=== PATIENT | male | born 1960 | race Caucasian/White ===

== ENCOUNTER 2022-10-29 16:39 | Observation (INO) | payer BC, SELFPAY ==
[2022-10-29] VITALS (8 sets, daily range): BP systolic 114–121; BP diastolic 56–64; PULSE 73–83; RESP 18–20; TEMP 36.6–36.9; O2SAT 97–100; BMI 27.5
--- NOTE | 2022-10-29 18:50 | DI.US.S_ITS ---
PROCEDURE: US ABDOMEN LIMITED INDICATIONS: RUQ/RLQ PAIN TECHNIQUE: Real-time focused scanning was performed of the abdomen, with image documentation. COMPARISON: [facility], CT, CT ABDOMEN PELVIS W CON, 10/29/2022, 20:15. FINDINGS: The liver is mildly enlarged but demonstrates no focal mass lesions. The gallbladder demonstrates no stones, wall thickening, or pericholecystic fluid. No intra or extrahepatic biliary ductal dilatation. Pancreas was not well visualized. Evaluation of the right lower quadrant demonstrates a tubular structure which appears blind ending and measures up to 1.5 cm in diameter with wall thickening measuring up to 0.4 cm. This was reportedly noncompressible. There is increased vascularity within the wall on color Doppler interrogation. Adjacent echogenic fat is noted. No definite free fluid. IMPRESSION: 1. Blind-ending noncompressible tubular structure in the right lower quadrant suggestive of acute appendicitis. Findings discussed with Dr. Morocho on 10/29/2022 at 8:40 p.m.. Dictated by: Alfredo Nathan M.D. on 10/29/2022 at 20:33 Approved by: Alfredo Nathan M.D. on 10/29/2022 at 20:42
[2022-10-29 19:17] LABS: Add Manual Diff / Slide Review NO; Basophils Absolute Auto 0 /uL (0-100); Basophils Percent Auto 0.3 % (0-2); Eosinophils Absolute Auto 0 /uL (0-450); Hematocrit 38.9 % (41-53); Hemoglobin 13.1 g/dL (13.5-17.5); Lymphocytes Absolute Auto 700 /uL (1100-4500); Lymphocytes Percent Auto 4.5 % (25-40); Mean Corpuscular HGB Conc 33.6 % (30-36); Mean Corpuscular Hemoglobin 29.7 PG (26-34); Mean Corpuscular Volume 88.4 fL (80-100); Monocytes Absolute Auto 900 /uL (0-900); Monocytes Percent Auto 6.4 % (3-14); Neutrophils Absolute Auto 13100 /uL (1500-7000); Neutrophils Percent Auto 88.8 % (50-75); Platelet Count 139 X10^3/uL (150-400); Red Cell Distribution Width 14.2 % (11.6-14.8); White Blood Cell Count 14.7 X10^3/uL (4.5-11.0)
--- NOTE | 2022-10-29 19:20 | ED_ITS ---
HPI - General Adult General Chief complaint: Abdominal Pain Stated complaint: ABD PAIN Time Seen by Provider: 10/29/22 19:01 Source: patient Mode of arrival: Ambulatory History of Present Illness HPI narrative: Patient is a 62-year-old male who is here for evaluation of approximately 12 hours of what was initially right upper quadrant and right-sided abdominal pain that has progressed now to more periumbilical and lower right lower quadrant pain. He denies any fevers. No prior abdominal surgeries. No urinary symptoms. He has urinated today but that has not changed his pain at all. He also feels like he has been somewhat constipated but did have a bowel movement today and that did not change his pain at all. No nausea or vomiting but he has had a decrease in appetite. No chest pain or shortness of breath. No testicular pain. Related Data Allergies Allergy/AdvReac Type Severity Reaction Status Date / Time No Known Drug Allergies Allergy Verified 10/29/22 17:22 Review of Systems Constitutional Constitutional: Reports system reviewed and no additional complaints, except as documented Cardiovascular Cardiovascular: Reports system reviewed and no additional complaints, except as documented Respiratory Respiratory: Reports system reviewed and no additional complaints, except as documented Gastrointestinal Gastrointestinal: Reports system reviewed and no additional complaints, except as documented Genitourinary Genitourinary: Reports system reviewed and no additional complaints, except as documented Integumentary/Breasts Skin/Breast: Reports system reviewed and no additional complaints, except as documented Patient History Social History Smoking Status: Never smoker Smoking Status: Never smoker alcohol intake frequency: 0-2 drinks per day Substance Use Type: does not use Exam Initial Vital Signs Initial Vital Signs: Vital Signs Temperature 98.4 F 10/29/22 17:14 Pulse Rate 83 10/29/22 17:14 Respiratory Rate 20 10/29/22 17:14 Blood Pressure 114/61 10/29/22 17:14 Pulse Oximetry 100 10/29/22 17:14 Oxygen Delivery Method Room Air 10/29/22 17:14 [facility] Head: normal to inspection and normocephalic GI Inspection: normal to inspection and non-distended Palpation: soft, No firm, No guarding and tender (Right lower quadrant and right upper quadrant) Back/Spine/Pelvis Back: No CVA tenderness Skin General: no rashes or lesions noted Neuro General: patient alert, patient awake and moves all extremities Course Orders Ordered: ED Orders 10/29/22 18:50 US abdomen limited Stat 10/29/22 19:10 Complete Blood Count AUTO DIFF Stat Comprehensive Metabolic Panel Stat Lipase Stat 10/29/22 19:12 EKG-12 Lead Stat 10/29/22 19:56 CT abdomen pelvis w con Stat Acetaminophen (Acetaminophen 325 Mg Tablet) 650 mg PO Q6H BAM Gabapentin (Gabapentin 300 Mg Capsule) 300 mg PO TID BAM Hydromorphone HCl (Hydromorphone 0.5 Mg Inj) 0.5 mg IV Q2H PRN PRN Reason: Pain, Severe (7-10) Lactated Ringer's (Lactated Ringers) 1,000 mls @ 100 mls/hr IV CONT BAM Piperacillin Sod/Tazobactam (Sod 3.375 gm/ Sodium Chloride) 100 mls @ 25 mls/hr IV Q8H BAM Ibuprofen (Ibuprofen 600 Mg Tablet) 600 mg PO Q6H BAM Naloxone HCl (Naloxone 0.4 Mg/Ml Vial) 0.2 mg IV Q2MIN PRN PRN Reason: Opiate Reversal Ondansetron HCl (Ondansetron 4 Mg Odt) 4 mg PO NOW PRN PRN Reason: Nausea And Vomiting Ondansetron HCl (Ondansetron 4 Mg/2 Ml Inj) 4 mg IV NOW PRN PRN Reason: Nausea And Vomiting Oxycodone HCl (Oxycodone Ir 5 Mg Tablet) 5 mg PO Q3H PRN PRN Reason: Pain, Moderate (4-6) Discontinued Medications Scopolamine (Scopolamine 1 Patch) 1 patch TOP NOW ONE Stop: 10/29/22 21:25 Vital Signs Vital signs: Vital Signs - 8 hr 10/29/22 17:14 10/29/22 19:03 10/29/22 19:03 Temperature 98.4 F Pulse Rate 83 81 Respiratory Rate 20 Blood Pressure 114/61 120/64 Pulse Oximetry 100 98 Oxygen Delivery Method Room Air Room Air 10/29/22 19:30 10/29/22 19:30 10/29/22 20:00 Temperature Pulse Rate 73 Respiratory Rate Blood Pressure 118/58 L 119/56 L Pulse Oximetry 100 Oxygen Delivery Method Room Air 10/29/22 20:00 10/29/22 20:30 10/29/22 20:30 Temperature Pulse Rate 75 77 Respiratory Rate Blood Pressure 115/57 L Pulse Oximetry 99 98 Oxygen Delivery Method Room Air Room Air 10/29/22 21:00 10/29/22 21:00 Temperature Pulse Rate 79 Respiratory Rate Blood Pressure 121/60 Pulse Oximetry 99 Oxygen Delivery Method Room Air Medical Decision Making Lab Data Lab results reviewed: Yes I reviewed the patient's lab results. 10/29/22 19:10 10/29/22 19:10 Labs: Lab Results 10/29/22 10/29/22 Range/Units 19:10 19:10 WBC 14.7 H (4.5-11.0) X10^3/uL RBC 4.40 L (4.5-5.9) X10^6/uL Hgb 13.1 L (13.5-17.5) g/dL Hct 38.9 L (41-53) % MCV 88.4 (80-100) fL MCH 29.7 (26-34) PG MCHC 33.6 (30-36) % RDW 14.2 (11.6-14.8) % Plt Count 139 L (150-400) X10^3/uL Neut % (Auto) 88.8 H (50-75) % Lymph % (Auto) 4.5 L (25-40) % Glenn % (Auto) 6.4 (3-14) % Eos % (Auto) 0.0 L (2-4) % Baso % (Auto) 0.3 (0-2) % Neut # (Auto) 92904 H (2845-7643) /uL Lymph # (Auto) 700 L (4388-2425) /uL Glenn # (Auto) 900 (0-900) /uL Eos # (Auto) 0 (0-450) /uL Baso # (Auto) 0 (0-100) /uL Sodium 135 L (137-145) mmol/L Potassium 4.3 (3.4-5.1) mmol/L Chloride 101 (98-107) mmol/L Carbon Dioxide 25 (22-32) mmol/L BUN 16 (9-20) mg/dL Creatinine 0.93 (0.66-1.25) mg/dL Estimated GFR > 60 (>60) mL/min BUN/Creatinine Ratio 17.2 (6-22) Glucose 111 H (80-110) mg/dL Calcium 8.9 (8.4-10.2) mg/dL Total Bilirubin 1.1 (0.2-1.3) mg/dL AST 39 (17-59) IU/L ALT 35 (<50) IU/L Alkaline Phosphatase 42 (38-126) U/L Total Protein 7.3 (6.3-8.2) g/dL Albumin 4.5 (3.5-5.0) g/dL Globulin 2.8 (1.7-4.1) g/dL Albumin/Globulin Ratio 1.6 (1.0-2.8) Lipase 33 (23-300) U/L Urine Dip Bedside Urine Glucose Negative Bedside Urine Bilirubin - Negative Bedside Urine Ketone + 15 Urine Specific [place] 1.010 Bedside Urine Occult Blood - Negative Bedside Urine pH 5.5 Bedside Urine Protein - Negative Bedside Urine Urobilinogen - Negative Bedside Urine Nitrite - Negative Bedside Urine Leukocytes - Negative Esterase Point of care testing: Urine Dip Bedside Urine Glucose Negative Bedside Urine Bilirubin - Negative Bedside Urine Ketone + 15 Urine Specific [place] 1.010 Bedside Urine Occult Blood - Negative Bedside Urine pH 5.5 Bedside Urine Protein - Negative Bedside Urine Urobilinogen - Negative Bedside Urine Nitrite - Negative Bedside Urine Leukocytes - Negative Esterase Imaging Data US - abdomen: Radiologist's Impression: PROCEDURE: US ABDOMEN LIMITED ? INDICATIONS:? RUQ/RLQ PAIN ? TECHNIQUE:? Real-time focused scanning was performed of the abdomen, with image documentation.? ? COMPARISON:? [facility], CT, CT ABDOMEN PELVIS W CON, 10/29/2022, 20:15. ? FINDINGS:? ? The liver is mildly enlarged but demonstrates no focal mass lesions.? ? The gallbladder demonstrates no stones, wall thickening, or pericholecystic fluid. ? No intra or extrahepatic biliary ductal dilatation. ? Pancreas was not well visualized. ? Evaluation of the right lower quadrant demonstrates a tubular structure which appears blind ending and measures up to 1.5 cm in diameter with wall thickening measuring up to 0.4 cm.? This was reportedly noncompressible.? There is increased vascularity within the wall on color Doppler interrogation.? Adjacent echogenic fat is noted.? No definite free fluid. ? ? IMPRESSION:? ? 1. Blind-ending noncompressible tubular structure in the right lower quadrant suggestive of acute appendicitis. ? Findings discussed with Dr. Morocho on 10/29/2022 at 8:[address] scan - abdomen/pelvis: Radiologist's Impression: PROCEDURE:? CT ABDOMEN PELVIS W CON ? INDICATIONS:? Right lower quadrant abdominal pain ? TECHNIQUE:? After the administration of IV contrast, axial sections were acquired from the lung bases to the pubic symphysis.? Coronal and sagittal reformats were performed.? For radiation dose reduction, the following was used:? automated exposure control, adjustment of mA and/or kV according to patient size. ? COMPARISON:? [facility], ABDOMEN LIMITED, 10/29/2022, 19:22. ? FINDINGS:? Image quality:? Excellent.? ? Lung bases:? There is mild dependent atelectasis.? ? Heart:? Heart is normal in size. ? ? ABDOMEN: Liver:? No mass lesion. Gallbladder:? Within normal limits without calcified gallstones.? ? Biliary ducts:? No biliary ductal dilatation.? ? Pancreas:? Unremarkable.? ? Spleen:? Normal in size.? ? Adrenal Glands:? No adrenal nodules.? ? Kidneys and Ureters:? No hydronephrosis.? ? ? Stomach and Bowel:? Stomach, small bowel loops, and colon are normal in caliber and wall thickness.? The appendix demonstrates abnormal wall thickening and enlargement, measuring up to 1.6 cm in diameter with periappendiceal fat stranding consistent with acute appendicitis.? No associated appendiculolith.? Peritoneum:? There is minimal free fluid in the right lower quadrant without a loculated abscess.? No free air.? ? Ventral Wall: ? No hernia.? Abdominal Nodes:? No retroperitoneal or mesenteric adenopathy by size criteria.? Vessels:? Aorta and inferior vena cava are normal in size.? ? PELVIS: Pelvic Organs:? Unremarkable.? ? Bladder:? Unremarkable.? ? Pelvic Nodes: No enlarged lymph nodes.? Miscellaneous: No inguinal hernias are seen. ? ? ? Bones:? Visualized osseous structures demonstrate no suspicious focal lesions. ? IMPRESSION:? ? 1. Acute appendicitis without evidence of appendiculolith or suspected perforation. ECG Data Attestation: I personally reviewed and interpreted this ECG as follows: Interpretation: Sinus rhythm Ventricular rate is 77 Normal axis Normal QRS Normal QTC No ST T wave changes MDM Narrative Medical decision making narrative: Patient has CT scan evidence of acute appendicitis. Has a leukocytosis. This does fit his clinical presentation. I discussed the CT scan findings with Dr. Darnell who had me discussed with the patient options to include oral antibiotics and discharged home with an interval appendectomy versus being admitted to the hospital this evening. After the discussion with the patient he opted to be admitted to the hospital for surgical treatment. Patient will be admitted to General surgery Service. Discharge Plan Departure Patient Disposition: Admitted As Inpatient Clinical Impression: Acute appendicitis Admit Date/Time: 10/29/22 21:08 Admit Provider: Maria Esther Darnell
[2022-10-29 19:29] LABS: Alanine Aminotransferase 35 IU/L (<50); Albumin 4.5 g/dL (3.5-5.0); Albumin Globulin Ratio 1.6 (1.0-2.8); Alkaline Phosphatase 42 U/L (38-126); Aspartate Aminotransferase 39 IU/L (17-59); BUN Creatinine Ratio 17.2 (6-22); Bilirubin Total 1.1 mg/dL (0.2-1.3); Blood Urea Nitrogen 16 mg/dL (9-20); Calcium 8.9 mg/dL (8.4-10.2); Carbon Dioxide 25 mmol/L (22-32); Chloride 101 mmol/L (98-107); Estimated Glomerular Filt Rate > 60 mL/min (>60); Globulin 2.8 g/dL (1.7-4.1); Glucose 111 mg/dL (80-110); HEMOLYSIS 17 (0-50); Lipase 33 U/L (23-300); Potassium 4.3 mmol/L (3.4-5.1); Sodium 135 mmol/L (137-145); Total Protein 7.3 g/dL (6.3-8.2)
--- NOTE | 2022-10-29 19:56 | DI.CT.S_ITS ---
PROCEDURE: CT ABDOMEN PELVIS W CON INDICATIONS: Right lower quadrant abdominal pain TECHNIQUE: After the administration of IV contrast, axial sections were acquired from the lung bases to the pubic symphysis. Coronal and sagittal reformats were performed. For radiation dose reduction, the following was used: automated exposure control, adjustment of mA and/or kV according to patient size. COMPARISON: [facility], , US ABDOMEN LIMITED, 10/29/2022, 19:22. FINDINGS: Image quality: Excellent. Lung bases: There is mild dependent atelectasis. Heart: Heart is normal in size. ABDOMEN: Liver: No mass lesion. Gallbladder: Within normal limits without calcified gallstones. Biliary ducts: No biliary ductal dilatation. Pancreas: Unremarkable. Spleen: Normal in size. Adrenal Glands: No adrenal nodules. Kidneys and Ureters: No hydronephrosis. Stomach and Bowel: Stomach, small bowel loops, and colon are normal in caliber and wall thickness. The appendix demonstrates abnormal wall thickening and enlargement, measuring up to 1.6 cm in diameter with periappendiceal fat stranding consistent with acute appendicitis. No associated appendiculolith. Peritoneum: There is minimal free fluid in the right lower quadrant without a loculated abscess. No free air. Ventral Wall: No hernia. Abdominal Nodes: No retroperitoneal or mesenteric adenopathy by size criteria. Vessels: Aorta and inferior vena cava are normal in size. PELVIS: Pelvic Organs: Unremarkable. Bladder: Unremarkable. Pelvic Nodes: No enlarged lymph nodes. Miscellaneous: No inguinal hernias are seen. Bones: Visualized osseous structures demonstrate no suspicious focal lesions. IMPRESSION: 1. Acute appendicitis without evidence of appendiculolith or suspected perforation. Findings discussed with Dr. Morocho on 10/29/2022 at 8:40 p.m.. Dictated by: Alfredo Nathan M.D. on 10/29/2022 at 20:44 Approved by: Alfredo Nathan M.D. on 10/29/2022 at 20:47
--- NOTE | 2022-10-29 21:31 | P.HP_ITS ---
History of Present Illness <Maria Esther Darnell MD - Last Filed: 10/29/22 21:33> History of Present Illness Chief complaint: ABD PAIN Narrative: Around 12 hours abdominal pain when presented to ED. Right sided and worsening. CT shows uncomplicated appendicitis w/o fecal lith. Patient for out of town and prefers surgery. <Kyle Gardner MD - Last Filed: 10/30/22 10:06> History of Present Illness Narrative: Mr. Chavis is a healthy 62-year-old man who presented to [facility] with abdominal pain last night. He had approximately 12 hours of generally right-sided abdominal pain prior to presentation. Initial workup demonstrates white blood cell count 15 remainder of his laboratory studies are largely unremarkable. CT abdomen pelvis demonstrates 1.6 cm dilated appendix with fat stranding no abscess or fecalith. He has been receiving IV fluids and Zosyn since admission. He feels improved since presentation. He is traveling from [place] and the option of antibiotic therapy versus surgery was discussed with him in the emergency department and his preference was for surgery. No prior abdominal surgery. He has had multiple orthopedic operations which he tolerated without bleeding or anesthetic complication. Past medical history is significant for an aneurysm of his coronary vessel for which he takes aspirin and Crestor. He is followed by Cardiology and has no chest pain at rest or with exertion. 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 Meds <Maria Esther Darnell MD - Last Filed: 10/29/22 21:33> Home Medications and Allergies Home Medications Medication Instructions Recorded Confirmed Type aspirin 81 mg chewable tablet 81 mg PO DAILY 10/29/22 10/29/22 History escitalopram oxalate 5 mg tablet 5 mg PO DAILY 10/29/22 10/29/22 History (Lexapro) rosuvastatin 5 mg tablet (Crestor) 3 mg PO DAILY 10/29/22 10/29/22 History Allergies Allergy/AdvReac Type Severity Reaction Status Date / Time No Known Drug Allergies Allergy Verified 10/29/22 17:22 Exam <Maria Esther Darnell MD - Last Filed: 10/29/22 21:33> Vital Signs (past 8 hours): - 10/29/22 17:14 10/29/22 19:03 10/29/22 19:03 Temperature 98.4 F Pulse Rate 83 81 Respiratory Rate 20 Blood Pressure 114/61 120/64 Pulse Oximetry 100 98 Oxygen Delivery Method Room Air Room Air 10/29/22 19:30 10/29/22 19:30 10/29/22 20:00 Temperature Pulse Rate 73 Respiratory Rate Blood Pressure 118/58 L 119/56 L Pulse Oximetry 100 Oxygen Delivery Method Room Air 10/29/22 20:00 10/29/22 20:30 10/29/22 20:30 Temperature Pulse Rate 75 77 Respiratory Rate Blood Pressure 115/57 L Pulse Oximetry 99 98 Oxygen Delivery Method Room Air Room Air 10/29/22 21:00 10/29/22 21:00 Temperature Pulse Rate 79 Respiratory Rate Blood Pressure 121/60 Pulse Oximetry 99 Oxygen Delivery Method Room Air Oxygen Delivery Method Room Air <Kyle Gardner MD - Last Filed: 10/30/22 10:06> Narrative Exam Narrative: GENERAL: A well nourished, well developed gentleman, resting comfortably, in no acute distress. HEENT: Normocephalic, atraumatic. No scleral icterus CHEST: Rising symmetrically. No audible wheezes CARDIOVASCULAR: Warm and well perfused. Regular rate ABDOMEN: Soft, mild tenderness right lower quadrant. EXTREMITIES: Normal tone and without edema. NEUROLOGIC: Moving all extremities spontaneously. No gross motor deficits. Objective <Maria Esther Darnell MD - Last Filed: 10/29/22 21:33> Labs 10/29/22 19:10 10/29/22 19:10 Labs: Laboratory Results - last 24 hr 10/29/22 10/29/22 19:10 19:10 WBC 14.7 H RBC 4.40 L Hgb 13.1 L Hct 38.9 L MCV 88.4 MCH 29.7 MCHC 33.6 RDW 14.2 Plt Count 139 L Neut % (Auto) 88.8 H Lymph % (Auto) 4.5 L Walker % (Auto) 6.4 Eos % (Auto) 0.0 L Baso % (Auto) 0.3 Neut # (Auto) 18079 H Lymph # (Auto) 700 L Walker # (Auto) 900 Eos # (Auto) 0 Baso # (Auto) 0 Sodium 135 L Potassium 4.3 Chloride 101 Carbon Dioxide 25 BUN 16 Creatinine 0.93 Estimated GFR > 60 BUN/Creatinine Ratio 17.2 Glucose 111 H Calcium 8.9 Total Bilirubin 1.1 AST 39 ALT 35 Alkaline Phosphatase 42 Total Protein 7.3 Albumin 4.5 Globulin 2.8 Albumin/Globulin Ratio 1.6 Lipase 33 Assessment & Plan <Maria Esther Darnell MD - Last Filed: 10/29/22 21:33> Assessment and plan (1) Acute appendicitis: Status: Acute <Kyle Gardner MD - Last Filed: 10/30/22 10:06> Assessment and plan (1) Acute appendicitis: Assessment & Plan narrative: Mr. Chavis is a healthy 62-year-old man with acute appendicitis. Workup is significant for white blood cell count [address] abdomen pelvis which demonstrates a dilated appendix with fat stranding no abscess or significant free fluid. I explained to him and his that his findings are consistent with acute appendicitis likely without perforation. We discussed treatment options including both medical management with antibiotic therapy only versus appendectomy. [place] and given these logistics in addition to other factors, his preference is to proceed with appendectomy. Overview of the operation was discussed. Operative risks including hemorrhage, infection, damage to surrounding structures, conversion to open have been discussed. Questions have been answered and he is in agreement with this plan. Laparoscopic appendectomy NPO with IV fluid Zosyn
[2022-10-29] MEDS: PIPERACILLIN/TAZO 3.375 GM in SODIUM CHLORIDE 0.9% 100 ML IV (22:44)
[2022-10-29] MEDS: SCOPOLAMINE 1 PATCH TOP (22:54)
[2022-10-29] MEDS: IBUPROFEN 600 MG TABLET PO (22:55)
[2022-10-29] MEDS: SODIUM CHLORIDE 0.9% 1,000 ML 100 ML IV (22:58)
[2022-10-30] VITALS (11 sets, daily range): BP systolic 92–121; BP diastolic 56–76; PULSE 60–76; RESP 12–17; TEMP 36.5–36.9; O2SAT 97–100; BMI 27.5
--- NOTE | 2022-10-30 | PATH_ITS ---
[facility] Accession Number: [id number] No. of containers..01 Tissue . 01 Material submitted: . appendix - APPENDIX . 01 Diagnosis: Vermiform Appendix, Appendectomy: Acute appendicitis and periappendicitis. Negative for neopalsia. MRV 11/04/2022 1711 Local . 01 Electronically signed: . Maria Esther Hughes MD, Pathologist NPI- [id number] . 01 Gross description: . The specimen is received in formalin labeled with the patient's name, , and appendix, and consists of a barfield vermiform appendix measuring 4.5 cm in length by 1.2 cm in diameter with barfield roughened serosa and adherent material consistent with exudate. The margin is inked blue. Sectioning reveals a patent lumen averaging 0.4 cm in diameter with barfield thickened salguero averaging 0.7 cm thick with no discrete lesions or perforations identified. [facility] [employer] sections to include the margin, one-half of the bisected distal tip, and cross sections are submitted in cassettes A1-A2. ([id number]) /[facility] 11/01/2022 1706 Local . 01 Pathologist provided ICD-10: K35.80 . 01 CPT . 838192 Specimen Comment: A courtesy copy of this report has been sent to [phone] Performed at: 01 [facility] [address] [place] [address] [id number] MD Alfredo Dixon MD Phone: [phone]
[2022-10-30] MEDS: PIPERACILLIN/TAZO 3.375 GM in SODIUM CHLORIDE 0.9% 100 ML IV ×2 (06:10→13:05)
[2022-10-30] MEDS: SODIUM CHLORIDE 0.9% 1,000 ML 100 ML IV (09:16)
--- NOTE | 2022-10-30 13:06 | CM.DANOTE ---
Initial DCP Assessment Note Pt is a 62 yo male, visiting from [place], [place], presents with abd pain w/new dx of appendicitis, expected to have lap appy with Dr godfrey today Patient indp and active at baseline and will discharge home w/spouse when medically cleared to do so PCP: Unknown Payer: [employer] out of [facility] No barriers identified at this time to patient's safe discharge home w/family to assist during recovery; close outpatient f/u recommended once patient returns home. ROLF Alvarado Discharge Planning/Care Management CM Discharge Assessment Start: 10/30/22 12:37 Freq: Status: Active Protocol: Document 10/30/22 12:37 WILLIE (Rec: 10/30/22 13:05 WILLIE [id number]) Discharge Planning Assessment Assigned Environmental Compliance Specialist ROLF Mancia DPOA/Assigned Designee Name Earlene Chavis, spouse Contact Information [phone] Advance Directives? No History Provided By Patient,Medical Record Prior Living Arrangements House Household Members spouse Type of transporation used prior to Drives own vehicle admit Independent with ADL's Yes Is patient alert and oriented? Yes Barriers to Discharge No Comment Patient expected to have lap appy by Dr Godfrey, discharge home once medically cleared to do so Discharge Plan Home Transportation Arrangement Spouse Referrals Initiated None needed
[2022-10-30] MEDS: IBUPROFEN 600 MG TABLET PO ×2 (13:21→21:15)
[2022-10-30] MEDS: ACETAMINOPHEN 325 MG TABLET 650 MG PO (13:21)
--- NOTE | 2022-10-30 14:13 | PC.NURSE ---
Addendum entered by Janeen Riddle R.N. 10/30/22 18:31: Pt returned to floor from PACU at 1645. Pt reports no pain. 3 laproscopic surgical incisions in abdomen - covered with large bandaids. Dressings are CDI. PIV salene locked. Pt denies nausea. Ate dinner and is drinking 500+mL fluid. Pt OOB with SBA. Pt has not voided yet, as of 1829. Plan for d/c tomorrow AM. Will continue to monitor. Original Note: Day shift: Pt to OR with IV zosyn at 1415.
[2022-10-30] MEDS: LACTATED RINGERS 1,000 ML 100 ML IV (14:28)
--- NOTE | 2022-10-30 15:02 | P.HP_ITS ---
History of Present Illness History of Present Illness Date Patient Seen: 10/30/22 Time Patient Seen: 15:02 Chief complaint: ABD PAIN Narrative: Mr. Chavis is a healthy 62-year-old man who presented to [facility] Emergency Department with abdominal pain last night. He had approximately 12 hours of generally right-sided abdominal pain prior to presentation. Initial workup demonstrates white blood cell count 15 remainder of his laboratory studies are largely unremarkable. CT abdomen pelvis demonstrates 1.6 cm dilated appendix with fat stranding no abscess or fecalith. He has been receiving IV fluids and Zosyn since admission. He feels improved since presentation. He is traveling from [place] and the option of antibiotic therapy versus surgery was discussed with him in the emergency department and his preference was for surgery. No prior abdominal surgery. He has had multiple orthopedic operations which he tolerated without bleeding or anesthetic complication. Past medical history is significant for an aneurysm of his coronary vessel for which he takes aspirin and Crestor. He is followed by Cardiology and has no chest pain at rest or with exertion. [facility] Medical History (Updated 10/30/22 @ 14:21 by Kedar Soto RN) Coronary artery aneurysm Lipoma Surgical History (Updated 10/30/22 @ 14:21 by Kedar Soto RN) H/O foot surgery H/O hand surgery Social History (Updated 10/30/22 @ 09:57 by Kyle Gardner MD) household members: spouse occupational status: employed Smoking Status: Never smoker Meds Home Medications and Allergies Home Medications Medication Instructions Recorded Confirmed Type aspirin 81 mg chewable tablet 81 mg PO DAILY 10/29/22 10/29/22 History escitalopram oxalate 5 mg tablet 5 mg PO DAILY 10/29/22 10/29/22 History (Lexapro) rosuvastatin 5 mg tablet (Crestor) 3 mg PO DAILY 10/29/22 10/29/22 History Allergies Allergy/AdvReac Type Severity Reaction Status Date / Time No Known Drug Allergies Allergy Verified 10/29/22 17:22 Exam Vital Signs (past 8 hours): - 10/30/22 08:20 10/30/22 14:16 Temperature 97.7 F 97.8 F Pulse Rate 62 60 Respiratory Rate 16 16 Blood Pressure 92/57 L 118/62 Pulse Oximetry 99 100 Oxygen Delivery Method Room Air Oxygen Delivery Method Room Air Oxygen Flow Rate 0 Narrative Exam Narrative: GENERAL: A well nourished, well developed gentleman, resting comfortably, in no acute distress. HEENT: Normocephalic, atraumatic. No scleral icterus CHEST: Rising symmetrically. No audible wheezes CARDIOVASCULAR: Warm and well perfused. Regular rate ABDOMEN: Soft, mild tenderness right lower quadrant. EXTREMITIES: Normal tone and without edema. NEUROLOGIC: Moving all extremities spontaneously. No gross motor deficits. Objective Labs 10/29/22 19:10 10/29/22 19:10 Labs: Laboratory Results - last 24 hr 10/29/22 10/29/22 19:10 19:10 WBC 14.7 H RBC 4.40 L Hgb 13.1 L Hct 38.9 L MCV 88.4 MCH 29.7 MCHC 33.6 RDW 14.2 Plt Count 139 L Neut % (Auto) 88.8 H Lymph % (Auto) 4.5 L [place] % (Auto) 6.4 Eos % (Auto) 0.0 L Baso % (Auto) 0.3 Neut # (Auto) 73344 H Lymph # (Auto) 700 L [place] # (Auto) 900 Eos # (Auto) 0 Baso # (Auto) 0 Sodium 135 L Potassium 4.3 Chloride 101 Carbon Dioxide 25 BUN 16 Creatinine 0.93 Estimated GFR > 60 BUN/Creatinine Ratio 17.2 Glucose 111 H Calcium 8.9 Total Bilirubin 1.1 AST 39 ALT 35 Alkaline Phosphatase 42 Total Protein 7.3 Albumin 4.5 Globulin 2.8 Albumin/Globulin Ratio 1.6 Lipase 33 Assessment & Plan Assessment and plan (1) Acute appendicitis: Status: Acute Assessment & Plan narrative: Mr. Chavis is a healthy 62-year-old man with acute appendicitis. Workup is significant for white blood cell count [address] abdomen pelvis which demonstrates a dilated appendix with fat stranding no abscess or significant free fluid. I explained to him and his that his findings are consistent with acute appendicitis likely without perforation. We discussed treatment options including both medical management with antibiotic therapy only versus appendectomy. [place] and given these logistics in addition to other factors, his preference is to proceed with appendectomy. Overview of the operation was discussed. Operative risks including hemorrhage, infection, damage to surrounding structures, conversion to open have been discussed. Questions have been answered and he is in agreement with this plan. Laparoscopic appendectomy NPO with IV fluid Zosyn Quality VTE Deep Vein Thrombosis/Pulmonary Embolism Present on Admission: No
--- NOTE | 2022-10-30 15:27 | SUR.OPER ---
Supine on padded OR bed, head on pillow, right arm secured on padded arm board at <90 degrees abduction, left arm padded and tucked, legs uncrossed, safety belt at thigh, tape over blanket over lower legs.
[2022-10-30] MEDS: BUPIVACAINE 0.25% (PF) VIAL 30 ML INJ (15:40)
--- NOTE | 2022-10-30 16:05 | PM.OP.1 ---
Operative Date/Time/Diagnoses Date of procedure: 10/30/22 Time of procedure: 16:05 Pre-op diagnosis: Acute appendicitis Post-op diagnosis: same Procedure & Clinicians Procedure: Laparoscopic appendectomy Same procedure as scheduled: Yes Indications: Symptoms and radiographic findings consistent with acute appendicitis Surgeon: Kyle Gardner Anesthesia Type: General Operative Notes Findings: Acutely inflamed non perforated appendicitis Specimen(s): other (Appendix) Estimated Blood Loss (mL): 10 Procedure in detail: Patient was brought to the operating room placed supine on the table. Bilateral lower extremity compression devices were applied. Anesthesia was induced and they intubated with an endotracheal tube. They received 3.375 g of Zosyn prior to skin incision. The left arm was tucked and appropriately padded. They were prepped and draped in sterile fashion. Time-out was performed. An infraumbilical incision was made the umbilical stalk was grasped and elevated and incision was made and the abdomen was entered atraumatically. A 12 mm balloon trocar was then placed through the incision and pneumoperitoneum of 14 mm Hg was established. The scope was then inserted and the abdomen inspected, there was no evidence of injury upon entry. Two 5 mm ports were placed under direct visualization, one in the left lower quadrant and second in the lower midline. A thorough laparoscopic evaluation was performed. The patient was then tilted right side up. The small bowel was then swept to the upper aspect of the abdomen. The tenie were followed to the base of the cecum where the appendix was identified. The appendix was acutely inflamed but not perforated. The appendix was grasped and a window within the mesentery was made at the base of the appendix using the [place] dissector with care to avoid injuring the cecum. The mesoappendix was then divided using the endo-stapler with a staple length of 2.5 mm-white load. The mesenteric staple line was inspected for hemostasis. The appendix was then amputated flush at the cecum using the endo-stapler blue load. The specimen was retrieved using a endoscopic retrieval bag through the 10 mm infra-umbilical port. The 5 mm ports were then removed under direct visualization. The umbilical fascial incision was closed with 0 Vicryl in a figure-eight fashion. The skin wounds were irrigated and closed with 4-0 Monocryl followed by the application of Dermabond. Sponge instrument count at the end of the operation was correct. The patient tolerated procedure well was extubated and transferred to the postoperative care unit in stable condition. Complications: none Post-operative Condition: stable Disposition: Acute Care
[2022-10-31 08:00] VITALS: BP 98/43; PULSE 58; RESP 20; TEMP 36.4; O2SAT 100
--- NOTE | 2022-10-31 09:09 | PC.NURSE ---
Day shift: Pt showered independently this AM. Removed PIV. Went over discharge instructions with patient and patient's spouse. All questions answered. Pt stated understanding. Pt escorted to exit by LYNN Jackson.
== END 2022-10-31 08:35 | disposition home or self-care (01) ==
LOC: ED 21:08 → AC 10-30 06:54
PROVIDERS: Emergency Medicine; Surgery; Admitting Provider Surgery; Emergency Provider Emergency Medicine; Referring Provider Emergency Medicine; Visit Provider Surgery
PROC: 0DTJ4ZZ Resection of Appendix, Percutaneous Endoscopic Approach (ICD-10-PCS; CPT 44970; principal; 2022-10-30 15:00)
DX: K35.80 Unspecified acute appendicitis (principal)
CPT/HCPCS: 44970; 36415; 74177; 76705; 80053; 81003; 83690; 85025; 93005; 96365; 96366; 99233; 99284; G0378; J1100; J1170; J2405; J2543; J2704; J3010; J3490; Q9967